=== PATIENT | male | born 1995 | race Caucasian/White ===

== ENCOUNTER 2021-09-30 20:34 | Emergency (ER) | payer MEDICAID ==
[~2021-09-30] VITALS: Ht 172.7 cm; Wt 82.0 kg
[2021-09-30] MEDS ORDERED: ALBU6.7H9 INH (23:14)
[2021-09-30 23:31] LABS: BASOPHILS % 0.6 % (0.0-2.0); HEMATOCRIT. 41.8 % (42.0-52.0); HEMOGLOBIN. 14.3 g/dL (14.0-18.0); LYMPHOCYTES % 32.5 % (20.0-50.0); MEAN CORPUSCULAR HEMOGLOBIN 29.6 pg (28.0-32.0); MEAN CORPUSCULAR VOLUME 86.3 fL (80.0-94.0); MEAN PLATELET VOLUME 8.2 fl (7.4-10.4); NEUTROPHILS % 56.9 % (40.0-76.0); PLATELET 265 x1000/uL (130-400); RED BLOOD CELL COUNT 4.84 mill/uL (4.7-6.1); RED CELL DISTRIBUTION WIDTH 13.5 % (11.6-14.6)
[2021-10-01 00:08] LABS: CHLORIDE 106 mEq/L (98-107)
[2021-10-01 00:56] VITALS: BP 135/76
== END 2021-10-01 00:57 | disposition home or self-care (01) ==
LOC: ER 20:52
DX: R07.89 Other chest pain (principal); F17.290 Nicotine dependence, other tobacco product, uncomplicated
CPT/HCPCS: 36415; 71045; 80053; 84484; 85025; 99284